=== PATIENT | female | born 1945 | race African-American/Black ===

== ENCOUNTER 2018-07-11 10:15 | Inpatient (IN) | payer MEDICARE, MEDICAID ==
[~2018-07-11] VITALS: Ht 152.4 cm; Wt 68.5 kg
[2018-07-11] MEDS ORDERED: ALBUTEROL (0.083%) 2.5MG/3ML NEB HHN STA (10:47)
[2018-07-11] MEDS ORDERED: FUROSEMIDE 40MG/4ML VIAL IVP ONE (11:00)
[2018-07-11 11:44] LABS: BASOPHILS % 1.4 % (0.0-2.0); EOSINOPHILS % 1.3 % (0.0-5.0); HEMATOCRIT. 41.7 % (36.0-48.0); HEMOGLOBIN. 13.5 g/dL (12.0-16.0); LYMPHOCYTES % 18.9 % (20.0-50.0); MEAN CORPUSCULAR VOLUME 80.4 fL (81.0-99.0); MEAN PLATELET VOLUME 9.3 fl (7.4-10.4); NEUTROPHILS % 69.4 % (40.0-76.0); PLATELET 259 x1000/uL (130-400); RED BLOOD CELL COUNT 5.19 mill/uL (4.2-5.4); RED CELL DISTRIBUTION WIDTH 15.6 % (11.6-14.6)
[2018-07-11 11:52] LABS: INR 1.1; PARTIAL THROMBOPLASTIN TIME 26.4 sec (23.4-31.0); PROTHROMBIN TIME 11.4 sec (9.1-11.1)
[2018-07-11 11:53] LABS: CHLORIDE 104 mEq/L (98-107)
[2018-07-11 12:00] LABS: PHOSPHORUS 3.9 mg/dL (2.5-4.9)
[2018-07-11 16:00] VITALS: BP 147/82
[2018-07-11] MEDS ORDERED: ASPI-1159 PO (17:03)
[2018-07-11] MEDS ORDERED: METO25TA6 PO (17:03)
[2018-07-11] MEDS ORDERED: ACET-2853 PO (17:05)
[2018-07-11] MEDS ORDERED: FURO20TA4 PO (17:05)
[2018-07-11] MEDS ORDERED: LEVO25TA7 PO (17:08)
[2018-07-11] MEDS ORDERED: HYDR-4134 PO ×2 (17:08→17:33)
[2018-07-11 17:13] VITALS: BP 147/82
[2018-07-11] MEDS: BLOOD SUGAR DIAGNOSTIC STRIP TEST SCH ×2 (17:40→21:10)
[2018-07-11] MEDS ORDERED: DEXTROSE 50% WATER 50ML SYRINGE IV PRN (17:45)
[2018-07-11] MEDS: INSULIN LISPRO 100 UNITS/ML SUBCUT SCH ×2 (18:10→21:19)
[2018-07-11 20:00] VITALS: BP 157/84
[2018-07-11] MEDS: ENOXAPARIN 40MG/0.4ML SYR SUBCUT SCH (21:14)
[2018-07-12] VITALS: BP 152/78
[2018-07-12 04:00] VITALS: BP 159/95
[2018-07-12] MEDS: BLOOD SUGAR DIAGNOSTIC STRIP TEST SCH ×4 (06:37→21:33)
[2018-07-12 07:13] LABS: BASOPHILS % 1.6 % (0.0-2.0); EOSINOPHILS % 3.3 % (0.0-5.0); HEMOGLOBIN. 13.3 g/dL (12.0-16.0); LYMPHOCYTES % 23.6 % (20.0-50.0); MEAN CORPUSCULAR HEMOGLOBIN 26.1 pg (28.0-32.0); MEAN CORPUSCULAR VOLUME 80.4 fL (81.0-99.0); MEAN PLATELET VOLUME 9.7 fl (7.4-10.4); MONOCYTES % 9.8 % (2.0-8.0); NEUTROPHILS % 61.7 % (40.0-76.0); PLATELET 260 x1000/uL (130-400); RED CELL DISTRIBUTION WIDTH 15.7 % (11.6-14.6)
[2018-07-12 07:22] LABS: CHLORIDE 110 mEq/L (98-107)
[2018-07-12 08:00] VITALS: BP 148/76
[2018-07-12] MEDS ORDERED: MEDICATION NOT ON FORMULARY EA (Levothyroxine Sodium 1 TAB) PO SCH (09:00)
[2018-07-12] MEDS ORDERED: MEDICATION NOT ON FORMULARY EA (Hydralazine Hcl 1 TAB) PO SCH (09:00)
[2018-07-12] MEDS ORDERED: MEDICATION NOT ON FORMULARY EA (Metoprolol Tartrate 1 TAB) PO SCH (09:00)
[2018-07-12] MEDS ORDERED: MEDICATION NOT ON FORMULARY EA (Aspirin (Aspirin Low Dose) 1 TAB) PO SCH (09:00)
[2018-07-12] MEDS ORDERED: FUROSEMIDE 40MG/4ML VIAL IVP SCH (09:00)
[2018-07-12] MEDS: LEVOTHYROXINE SODIUM 25MCG TABLET PO SCH (09:24)
[2018-07-12] MEDS: ASPIRIN 81MG TABLET PO SCH (09:24)
[2018-07-12] MEDS: INSULIN LISPRO 100 UNITS/ML SUBCUT SCH ×4 (09:24→21:30)
[2018-07-12] MEDS: HYDRALAZINE HCL 25MG TABLET PO SCH ×2 (09:25→21:27)
[2018-07-12] MEDS ORDERED: METOPROLOL TARTRATE 25MG TABLET PO SCH (11:30)
[2018-07-12 12:00] VITALS: BP 152/89
[2018-07-12 16:00] VITALS: BP 154/85
[2018-07-12] MEDS: ENOXAPARIN 40MG/0.4ML SYR SUBCUT SCH (18:18)
[2018-07-12] MEDS: POTASSIUM CHLORIDE 20MEQ TABLET SR PO SCH (18:19)
[2018-07-12] MEDS: FUROSEMIDE 40MG/4ML VIAL IVP SCH (18:19)
[2018-07-12 20:00] VITALS: BP 140/78
[2018-07-12] MEDS ORDERED: CARVEDILOL 6.25 MG TABLET PO SCH (21:00)
[2018-07-13] MEDS: BLOOD SUGAR DIAGNOSTIC STRIP TEST SCH ×4 (07:40→21:21)
[2018-07-13 08:00] VITALS: BP 141/70
[2018-07-13] MEDS: INSULIN LISPRO 100 UNITS/ML SUBCUT SCH ×4 (08:10→21:24)
[2018-07-13] MEDS: LEVOTHYROXINE SODIUM 25MCG TABLET PO SCH (08:39)
[2018-07-13] MEDS: HYDRALAZINE HCL 25MG TABLET PO SCH ×2 (08:39→21:00)
[2018-07-13] MEDS: POTASSIUM CHLORIDE 20MEQ TABLET SR PO SCH (08:40)
[2018-07-13] MEDS: ASPIRIN 81MG TABLET PO SCH (08:42)
[2018-07-13] MEDS: FUROSEMIDE 40MG/4ML VIAL IVP SCH ×2 (08:42→17:22)
[2018-07-13] MEDS ORDERED: DOCUSATE SODIUM 250MG CAPSULE PO PRN (09:45)
[2018-07-13 12:00] VITALS: BP 150/84
[2018-07-13] MEDS: METOPROLOL TARTRATE 25MG TABLET PO SCH ×2 (13:38→21:00)
[2018-07-13 16:00] VITALS: BP 141/75
[2018-07-13] MEDS: ENOXAPARIN 40MG/0.4ML SYR SUBCUT SCH (17:23)
[2018-07-13 20:00] VITALS: BP_SYST 108; BP_SYST 112; BP_DIAS 70
[2018-07-14 00:10] VITALS: BP 153/88
[2018-07-14 04:00] VITALS: BP 148/82
[2018-07-14] MEDS: LEVOTHYROXINE SODIUM 25MCG TABLET PO SCH (06:20)
[2018-07-14 06:28] LABS: BASOPHILS % 1.4 % (0.0-2.0); EOSINOPHILS % 3.5 % (0.0-5.0); HEMATOCRIT. 39.1 % (36.0-48.0); HEMOGLOBIN. 12.8 g/dL (12.0-16.0); LYMPHOCYTES % 26.3 % (20.0-50.0); MEAN CORPUSCULAR HEMOGLOBIN 26.4 pg (28.0-32.0); MEAN CORPUSCULAR VOLUME 80.7 fL (81.0-99.0); MEAN PLATELET VOLUME 9.6 fl (7.4-10.4); MONOCYTES % 11.2 % (2.0-8.0); NEUTROPHILS % 57.6 % (40.0-76.0); PLATELET 270 x1000/uL (130-400); RED BLOOD CELL COUNT 4.84 mill/uL (4.2-5.4)
[2018-07-14 08:00] VITALS: BP 162/95
[2018-07-14] MEDS: INSULIN LISPRO 100 UNITS/ML SUBCUT SCH ×4 (08:10→20:58)
[2018-07-14] MEDS: BLOOD SUGAR DIAGNOSTIC STRIP TEST SCH ×4 (08:11→20:59)
[2018-07-14] MEDS: POTASSIUM CHLORIDE 20MEQ TABLET SR PO SCH (08:58)
[2018-07-14] MEDS: FUROSEMIDE 40MG/4ML VIAL IVP SCH ×2 (08:58→18:52)
[2018-07-14] MEDS: ASPIRIN 81MG TABLET PO SCH (08:59)
[2018-07-14] MEDS: METOPROLOL TARTRATE 25MG TABLET PO SCH ×2 (08:59→20:58)
[2018-07-14] MEDS: HYDRALAZINE HCL 25MG TABLET PO SCH ×2 (08:59→20:57)
[2018-07-14 12:00] VITALS: BP 122/63
[2018-07-14 16:00] VITALS: BP 121/65
[2018-07-14] MEDS: ENOXAPARIN 40MG/0.4ML SYR SUBCUT SCH (18:52)
[2018-07-14 20:00] VITALS: BP 125/85
[2018-07-15] VITALS (8 sets, daily range): BP systolic 137–164; BP diastolic 71–95
[2018-07-15] MEDS: BLOOD SUGAR DIAGNOSTIC STRIP TEST SCH ×2 (06:31→13:05)
[2018-07-15] MEDS: INSULIN LISPRO 100 UNITS/ML SUBCUT SCH ×2 (06:31→14:01)
[2018-07-15] MEDS: FUROSEMIDE 40MG/4ML VIAL IVP SCH (06:32)
[2018-07-15] MEDS: LEVOTHYROXINE SODIUM 25MCG TABLET PO SCH (06:32)
[2018-07-15 06:49] LABS: BASOPHILS % 1.3 % (0.0-2.0); EOSINOPHILS % 2.8 % (0.0-5.0); HEMATOCRIT. 39.7 % (36.0-48.0); HEMOGLOBIN. 12.6 g/dL (12.0-16.0); LYMPHOCYTES % 24.7 % (20.0-50.0); MEAN CORPUSCULAR HEMOGLOBIN 25.4 pg (28.0-32.0); MEAN CORPUSCULAR VOLUME 80.3 fL (81.0-99.0); MEAN PLATELET VOLUME 9.3 fl (7.4-10.4); MONOCYTES % 10.7 % (2.0-8.0); NEUTROPHILS % 60.5 % (40.0-76.0); PLATELET 238 x1000/uL (130-400); RED BLOOD CELL COUNT 4.94 mill/uL (4.2-5.4); RED CELL DISTRIBUTION WIDTH 15.5 % (11.6-14.6)
[2018-07-15] MEDS: METOPROLOL TARTRATE 25MG TABLET PO SCH (08:57)
[2018-07-15] MEDS: HYDRALAZINE HCL 25MG TABLET PO SCH (08:57)
[2018-07-15] MEDS: ASPIRIN 81MG TABLET PO SCH (08:57)
[2018-07-15] MEDS: POTASSIUM CHLORIDE 20MEQ TABLET SR PO SCH (08:58)
[2018-07-15] MEDS ORDERED: AMLODIPINE 2.5MG TABLET PO SCH (09:00)
[2018-07-15] MEDS ORDERED: TRAMADOL 50MG TABLET PO PRN (09:15)
[2018-07-15] MEDS ORDERED: LISINOPRIL 20MG TABLET PO SCH (12:30)
[2018-07-15] MEDS ORDERED: FUROSEMIDE 40MG TABLET PO SCH (21:00)
[2018-07-16] MEDS ORDERED: AMLODIPINE 5MG TABLET PO SCH (09:00)
== END 2018-07-15 18:20 | disposition home or self-care (01) | DRG 293 ==
LOC: ER 12:07 → 7WST 13:02 → EDBEDREQTM 13:05 → EDBEDREQ 13:05 → ENRESERV 13:17 → CANRESERV 13:17 → ENRESERV 13:18 → 7WST 17:22
PROVIDERS: ADMIT Internal Medicine; ATTEND Internal Medicine
DX: I11.0 Hypertensive heart disease with heart failure (principal); E03.9 Hypothyroidism, unspecified; E11.9 Type 2 diabetes mellitus without complications; E88.09 Other disorders of plasma-protein metabolism, not elsewhere classified; E78.5 Hyperlipidemia, unspecified; I27.20 Pulmonary hypertension, unspecified; I34.0 Nonrheumatic mitral (valve) insufficiency; Z88.8 Allergy status to other drugs, medicaments and biological substances; I50.23 Acute on chronic systolic (congestive) heart failure
CPT/HCPCS: 36415; 71045; 80048; 82962; 83036; 83735; 83880; 84100; 84484; 93005; 93306; 94640; 96374; 99291; J1650; J1815; J1940; J7611